=== PATIENT | male | born 1955 | race Caucasian/White ===

== ENCOUNTER 2021-10-27 07:51 | Inpatient (IN) ==
[2021-10-27] MEDS ORDERED: Vancomycin 1,500 MG in NS 0.9% 250 ml 250 ML IVPB ONE (09:00)
[2021-10-27 09:15] LABS: ABS Eosinophils 0.1 10^3/ul (0-0.6); ABS Monocytes 0.4 10^3/ul (0-0.8); Eosinophil % 2.1 %; Hematocrit 32 % (42-52); Hemoglobin 10.7 g/dL (14.0-18.0); Lymphocyte % 18.4 %; Mean Corpuscular HGB Conc 34 g/dL (31-36); Mean Corpuscular Hemoglobin 30 pg (27-31); Mean Corpuscular Volume 89 fL (80-94); Mean Platelet Volume 6.9 fL (7.4-10.4); Platelet Count 220 10^3/uL (150-450); Red Blood Count 3.58 10^6 /uL (4.18-5.48); Red Cell Distribution Width 14 % (10-15); White Blood Count 5.6 10^3/uL (3.5-10.8)
[2021-10-27 09:52] LABS: Albumin 3.9 g/dL (3.2-5.2); Albumin/Globulin Ratio 1.6 (1-3); C Reactive Protein 91.63 mg/L (<8.01); Calcium 8.9 mg/dL (8.6-10.3); Globulin 2.5 g/dL (2-4); Potassium 4.6 mmol/L (3.5-5.0); Total Bilirubin 0.7 mg/dL (0.2-1.0); Total Protein 6.4 g/dL (6.4-8.9); eGFR CKD-EPI 42.1 (>60)
[2021-10-27] MEDS ORDERED: Lactated Ringers 1000 ml BAG 1,000 ML IV ONE (09:56)
[2021-10-27] MEDS ORDERED: Ondansetron 4 mg VIAL 2 MG/ML 2 ml VIAL IV PRN (11:18)
[2021-10-27 11:48] LABS: INR 1.13 (0.86-1.15)
[2021-10-27 12:31] LABS: HDL Cholesterol 38.2 mg/dL
[2021-10-27] MEDS ORDERED: Vancomycin per Pharmacy 1 EA NOTE FOLLOW UP SCH (13:00)
[2021-10-27] MEDS ORDERED: Gadoteridol (CONTRAST) 279.3 MG/ML 10 ML IV ONE (13:25)
[2021-10-27] MEDS ORDERED: Pantoprazole VIAL 40 MG VIAL IV ONE (13:50)
[2021-10-27] MEDS ORDERED: Calcium Carb (TUMS) 500 mg CHEW TAB PO PRN (14:16)
[2021-10-27] MEDS ORDERED: Magnesium Hydroxide LIQ 30 ML UDC PO PRN (14:16)
[2021-10-27] MEDS ORDERED: Saline NASAL SPRAY 0.65% BTL BOTH NARES PRN (14:16)
[2021-10-27] MEDS ORDERED: Polyethylene Glycol 3350 17 GM PACKET PO PRN (14:16)
[2021-10-27] MEDS ORDERED: Acetaminophen IV 1 GM/100ML 100 ML IV ONE (14:30)
[2021-10-27] MEDS: NS 0.9% 1000 ml BAG 1,000 ML IV SCH ×2 (14:36→23:05)
[2021-10-27] MEDS ORDERED: cefTRIAXone 2 gm/50 mL D5W 2 GM/50 ML BAG IV SCH (15:30)
[2021-10-27] MEDS: Cefepime 2 GM in Dextrose 2 GM/50 ML BAG IV SCH (16:44)
[2021-10-27] MEDS: Morphine 2 MG/ML SYRINGE IV PRN ×2 (18:37→23:06)
[2021-10-27] MEDS: Heparin 5000 UNITS/ML 1 mL VIAL SUBCUT SCH (23:05)
[2021-10-28] MEDS: Morphine 2 MG/ML SYRINGE IV PRN (04:15)
[2021-10-28] MEDS: Cefepime 2 GM in Dextrose 2 GM/50 ML BAG IV SCH ×2 (04:15→16:32)
[2021-10-28] MEDS ORDERED: Vancomycin Random Level NOTE FOLLOW UP ONE (06:00)
[2021-10-28] MEDS: Heparin 5000 UNITS/ML 1 mL VIAL SUBCUT SCH ×3 (06:07→21:08)
[2021-10-28 08:08] LABS: ABS Eosinophils 0.2 10^3/ul (0-0.6); ABS Lymphocytes 1.1 10^3/ul (1.0-4.8); ABS Monocytes 0.3 10^3/ul (0-0.8); ABS Neutrophils 2.7 10^3/ul (1.5-7.7); Eosinophil % 4.1 %; Hematocrit 33 % (42-52); Hemoglobin 11.2 g/dL (14.0-18.0); Lymphocyte % 26.2 %; Mean Corpuscular HGB Conc 34 g/dL (31-36); Mean Corpuscular Hemoglobin 30 pg (27-31); Mean Corpuscular Volume 90 fL (80-94); Mean Platelet Volume 7.1 fL (7.4-10.4); Platelet Count 242 10^3/uL (150-450); Red Cell Distribution Width 14 % (10-15); White Blood Count 4.3 10^3/uL (3.5-10.8)
[2021-10-28 08:34] LABS: Calcium 8.8 mg/dL (8.6-10.3); Vancomycin Random 5.8 mcg/mL; eGFR CKD-EPI 55.8 (>60)
[2021-10-28] MEDS: NS 0.9% 1000 ml BAG 1,000 ML IV SCH ×2 (08:40→19:56)
[2021-10-28] MEDS: CMCS: LoraTADine 10 mg TAB (NF) PO SCH (08:40)
[2021-10-28 08:47] LABS: Potassium 5.6 mmol/L (3.5-5.0)
[2021-10-28] MEDS: Vancomycin 1,750 MG in NS 0.9% 500 ml BAG 500 ML IVPB SCH (13:26)
[2021-10-29] MEDS: Cefepime 2 GM in Dextrose 2 GM/50 ML BAG IV SCH ×2 (04:48→17:46)
[2021-10-29] MEDS ORDERED: Lactated Ringers 1000 ml BAG 1,000 ML IV SCH (06:00)
[2021-10-29 06:59] LABS: ABS Eosinophils 0.2 10^3/ul (0-0.6); ABS Monocytes 0.4 10^3/ul (0-0.8); ABS Neutrophils 2.6 10^3/ul (1.5-7.7); Eosinophil % 4.4 %; Hematocrit 35 % (42-52); Hemoglobin 11.5 g/dL (14.0-18.0); Lymphocyte % 24.8 %; Mean Corpuscular HGB Conc 33 g/dL (31-36); Mean Corpuscular Hemoglobin 30 pg (27-31); Mean Corpuscular Volume 90 fL (80-94); Mean Platelet Volume 7.3 fL (7.4-10.4); Platelet Count 229 10^3/uL (150-450); Red Blood Count 3.89 10^6 /uL (4.18-5.48); Red Cell Distribution Width 14 % (10-15); White Blood Count 4.2 10^3/uL (3.5-10.8)
[2021-10-29] MEDS: CMCS: LoraTADine 10 mg TAB (NF) PO SCH (07:28)
[2021-10-29 07:43] LABS: eGFR CKD-EPI 69.2 (>60)
[2021-10-29 07:45] LABS: Potassium 5.4 mmol/L (3.5-5.0)
[2021-10-29] MEDS ORDERED: Ondansetron 4 mg VIAL 2 MG/ML 2 ml VIAL ONE (12:49)
[2021-10-29] MEDS ORDERED: fentaNYL 100 mcg/2 ml 50 MCG/ML VIAL ONE (12:49)
[2021-10-29] MEDS ORDERED: Lidocaine 2% PF 5 ML VIAL ONE (12:49)
[2021-10-29] MEDS ORDERED: Propofol 10 MG/ML 20 ML BTL ONE (12:49)
[2021-10-29] MEDS ORDERED: Midazolam 2 mg/2 ml VIAL 1 mg/ml 2 ml VIAL (2 mg) ONE (12:50)
[2021-10-29] MEDS ORDERED: Glycopyrrolate IV 0.2 MG/ML 1 ML VIAL ONE (13:58)
[2021-10-29] MEDS ORDERED: Bupivacaine 0.5% 50 ML MDV VIAL ONE (13:58)
[2021-10-29] MEDS ORDERED: Phenylephrine IV 10 MG/ML 1 ml VIAL ONE (14:19)
[2021-10-29] MEDS ORDERED: Ketamine HCL 50 mg/ml 10 ml VIAL (500 MG) ONE (14:44)
[2021-10-29] MEDS ORDERED: Sterile Water for Inj 10 ML ONE (14:51)
[2021-10-29] MEDS ORDERED: EPHEDrine (Pressors) 50 MG/ML VIAL ONE ×2 (14:51→15:10)
[2021-10-29] MEDS ORDERED: HYDROmorphone 1 MG/1 ML SYRINGE IV PRN (16:41)
[2021-10-29] MEDS ORDERED: Naloxone 0.4 mg VIAL 0.4 mg/ml 1 ml VIAL IV PRN (16:41)
[2021-10-29] MEDS ORDERED: Vancomycin 1,750 MG in NS 0.9% 500 ml BAG 500 ML IVPB SCH (17:00)
[2021-10-29] MEDS: Vancomycin 1,750 MG in NS 0.9% 500 ml BAG 500 ML IVPB SCH (17:45)
[2021-10-29] MEDS: NS 0.9% 1000 ml BAG 1,000 ML IV SCH (17:53)
[2021-10-29] MEDS: Morphine 2 MG/ML SYRINGE IV PRN (20:46)
[2021-10-30] MEDS: Morphine 2 MG/ML SYRINGE IV PRN ×3 (00:04→11:38)
[2021-10-30] MEDS: NS 0.9% 1000 ml BAG 1,000 ML IV SCH ×2 (03:40→11:38)
[2021-10-30 09:04] LABS: ABS Eosinophils 0.1 10^3/ul (0-0.6); ABS Monocytes 0.6 10^3/ul (0-0.8); ABS Neutrophils 3.9 10^3/ul (1.5-7.7); Eosinophil % 2.5 %; Hematocrit 33 % (42-52); Hemoglobin 11.3 g/dL (14.0-18.0); Lymphocyte % 17.3 %; Mean Corpuscular HGB Conc 34 g/dL (31-36); Mean Corpuscular Hemoglobin 30 pg (27-31); Mean Corpuscular Volume 88 fL (80-94); Mean Platelet Volume 6.7 fL (7.4-10.4); Platelet Count 264 10^3/uL (150-450); Red Cell Distribution Width 14 % (10-15); White Blood Count 5.6 10^3/uL (3.5-10.8)
[2021-10-30] MEDS: Enoxaparin 40 MG/0.4 ML SYR SUBCUT SCH (09:10)
[2021-10-30] MEDS: Magnesium Hydroxide LIQ 30 ML UDC PO PRN (09:10)
[2021-10-30] MEDS: CMCS: LoraTADine 10 mg TAB (NF) PO SCH (09:12)
[2021-10-30 09:52] LABS: Albumin 3.8 g/dL (3.2-5.2); Albumin/Globulin Ratio 1.3 (1-3); Calcium 8.7 mg/dL (8.6-10.3); Globulin 2.9 g/dL (2-4); Potassium 4.6 mmol/L (3.5-5.0); Total Bilirubin 0.6 mg/dL (0.2-1.0); Total Protein 6.7 g/dL (6.4-8.9); eGFR CKD-EPI 78.8 (>60)
[2021-10-30] MEDS ORDERED: Vancomycin Trough Check NOTE FOLLOW UP ONE (14:30)
[2021-10-30] MEDS ORDERED: Vancomycin 1,750 MG in NS 0.9% 500 ml BAG 500 ML IVPB SCH (15:00)
[2021-10-30 15:29] LABS: eGFR CKD-EPI 82.5 (>60)
[2021-10-31] MEDS: Vancomycin 1000 MG in NS 0.9% 250 ML IVPB SCH ×2 (03:38→14:46)
[2021-10-31 06:15] LABS: ABS Eosinophils 0.2 10^3/ul (0-0.6); ABS Lymphocytes 1.2 10^3/ul (1.0-4.8); ABS Monocytes 0.7 10^3/ul (0-0.8); ABS Neutrophils 3.7 10^3/ul (1.5-7.7); Hematocrit 32 % (42-52); Hemoglobin 10.7 g/dL (14.0-18.0); Lymphocyte % 20.6 %; Mean Corpuscular HGB Conc 34 g/dL (31-36); Mean Corpuscular Hemoglobin 30 pg (27-31); Mean Corpuscular Volume 89 fL (80-94); Mean Platelet Volume 6.9 fL (7.4-10.4); Platelet Count 266 10^3/uL (150-450); Red Blood Count 3.56 10^6 /uL (4.18-5.48); Red Cell Distribution Width 13 % (10-15); White Blood Count 5.8 10^3/uL (3.5-10.8)
[2021-10-31 06:43] LABS: Calcium 8.6 mg/dL (8.6-10.3); Potassium 4.8 mmol/L (3.5-5.0)
[2021-10-31] MEDS: Enoxaparin 40 MG/0.4 ML SYR SUBCUT SCH (09:02)
[2021-10-31] MEDS: Magnesium Hydroxide LIQ 30 ML UDC PO PRN (09:02)
[2021-10-31] MEDS: CMCS: LoraTADine 10 mg TAB (NF) PO SCH (09:03)
[2021-10-31 09:40] LABS: C Reactive Protein 81.25 mg/L (<8.01)
[2021-10-31 10:50] LABS: Erythrocyte Sed Rate 78 mm/Hr (0-19)
[2021-11-01] MEDS: Vancomycin 1000 MG in NS 0.9% 250 ML IVPB SCH ×2 (03:03→15:11)
[2021-11-01 06:33] LABS: ABS Eosinophils 0.2 10^3/ul (0-0.6); ABS Lymphocytes 1.2 10^3/ul (1.0-4.8); ABS Monocytes 0.6 10^3/ul (0-0.8); ABS Neutrophils 3.6 10^3/ul (1.5-7.7); Eosinophil % 3.3 %; Hematocrit 33 % (42-52); Hemoglobin 10.9 g/dL (14.0-18.0); Lymphocyte % 21.2 %; Mean Corpuscular HGB Conc 34 g/dL (31-36); Mean Corpuscular Hemoglobin 30 pg (27-31); Mean Corpuscular Volume 89 fL (80-94); Platelet Count 273 10^3/uL (150-450); Red Blood Count 3.66 10^6 /uL (4.18-5.48); Red Cell Distribution Width 14 % (10-15); White Blood Count 5.6 10^3/uL (3.5-10.8)
[2021-11-01 06:39] LABS: Calcium 8.5 mg/dL (8.6-10.3); Potassium 4.8 mmol/L (3.5-5.0); eGFR CKD-EPI 62.7 (>60)
[2021-11-01] MEDS: Enoxaparin 40 MG/0.4 ML SYR SUBCUT SCH (08:12)
[2021-11-01] MEDS: Polyethylene Glycol 3350 17 GM PACKET PO SCH (08:13)
[2021-11-01] MEDS: CMCS: LoraTADine 10 mg TAB (NF) PO SCH (08:13)
[2021-11-01 09:54] LABS: C Reactive Protein 64.85 mg/L (<8.01)
[2021-11-01] MEDS ORDERED: Vancomycin Trough Check NOTE FOLLOW UP ONE (14:30)
[2021-11-01 17:07] LABS: Urine Appearance Clear; Urine Bilirubin Negative (Negative); Urine Blood Negative (Negative); Urine Color Straw; Urine Glucose Negative (Negative); Urine Ketones Negative (Negative); Urine Nitrite Negative (Negative); Urine Protein Negative (Negative); Urine Specific Gravity 1.013 (1.002-1.030); Urine Urobilinogen Negative (Negative)
[2021-11-02] MEDS: Vancomycin 1,250 MG in NS 0.9% 250 ml 250 ML IVPB SCH ×3 (00:52→23:54)
[2021-11-02] MEDS: Polyethylene Glycol 3350 17 GM PACKET PO SCH (08:21)
[2021-11-02] MEDS: CMCS: LoraTADine 10 mg TAB (NF) PO SCH (08:27)
[2021-11-02] MEDS: Enoxaparin 40 MG/0.4 ML SYR SUBCUT SCH (08:27)
[2021-11-02 09:11] LABS: ABS Eosinophils 0.2 10^3/ul (0-0.6); ABS Lymphocytes 1.4 10^3/ul (1.0-4.8); ABS Monocytes 0.6 10^3/ul (0-0.8); ABS Neutrophils 4.9 10^3/ul (1.5-7.7); Hematocrit 36 % (42-52); Lymphocyte % 20.1 %; Mean Corpuscular HGB Conc 33 g/dL (31-36); Mean Corpuscular Hemoglobin 29 pg (27-31); Mean Corpuscular Volume 88 fL (80-94); Mean Platelet Volume 6.8 fL (7.4-10.4); Platelet Count 388 10^3/uL (150-450); Red Cell Distribution Width 14 % (10-15); White Blood Count 7.2 10^3/uL (3.5-10.8)
[2021-11-02 09:54] LABS: Calcium 9.5 mg/dL (8.6-10.3); Potassium 4.6 mmol/L (3.5-5.0); eGFR CKD-EPI 77.9 (>60)
[2021-11-03] MEDS: Polyethylene Glycol 3350 17 GM PACKET PO SCH (09:28)
[2021-11-03] MEDS: CMCS: LoraTADine 10 mg TAB (NF) PO SCH (09:30)
[2021-11-03] MEDS: Enoxaparin 40 MG/0.4 ML SYR SUBCUT SCH (09:31)
[2021-11-03] MEDS ORDERED: Vancomycin Trough Check NOTE FOLLOW UP ONE (11:30)
[2021-11-03] MEDS: Vancomycin 1,250 MG in NS 0.9% 250 ml 250 ML IVPB SCH (12:54)
[2021-11-04] MEDS: CMCS: LoraTADine 10 mg TAB (NF) PO SCH (07:41)
[2021-11-04] MEDS: Enoxaparin 40 MG/0.4 ML SYR SUBCUT SCH (07:45)
[2021-11-04] MEDS: Polyethylene Glycol 3350 17 GM PACKET PO SCH (07:52)
[2021-11-04 08:39] VITALS: BP 151/100
== END 2021-11-04 09:57 | disposition home health service (06) | DRG 505 ==
LOC: ED 07:51 → EDHOLD 11:26 → SUATTDRO 11:26 → SSU 14:09
PROVIDERS: ADMIT Internal Medicine; ATTEND Internal Medicine